=== PATIENT | female | born 1995 | race Caucasian/White ===

== ENCOUNTER 2018-03-10 23:21 | Emergency (ER) | payer OTHER, MEDICAID ==
[~2018-03-10] VITALS: Ht 165.1 cm; Wt 97.5 kg
[~2018-03-10 23:21] MED LIST: ROBAXIN 750 MG750 M1 PO; TRAMADOL 50 MG50 MG PO
[2018-03-10] MEDS ORDERED: ZOLOFT25 MG PO (23:37)
[2018-03-11 00:11] LABS: URINE BILIRUBIN NEGATIVE (Negative); URINE BLOOD NEGATIVE (Negative); URINE CLARITY CLEAR; URINE COLOR YELLOW; URINE GLUCOSE-RANDOM NEGATIVE (Negative); URINE KETONES NEGATIVE (Negative); URINE LEUKOCYTES-REFLEX NEGATIVE (Negative); URINE NITRITE-REFLEX NEGATIVE (Negative); URINE PROTEIN NEGATIVE (Negative); URINE SPECIFIC GRAVITY 1.025 (1.005-1.030); URINE UROBILINOGEN 0.2 E.U./dl (0.2-1.0)
[2018-03-11 00:28] LABS: ABSOLUTE BASOPHILS 0.1 thou/uL (0.0-0.2); ABSOLUTE EOSINOPHILS 0.1 thou/uL (0.0-0.7); ABSOLUTE LYMPHOCYTES 3.4 thou/uL (0.8-5.3); ABSOLUTE MONOCYTES 0.6 thou/uL (0.0-1.2); ABSOLUTE NEUTROPHILS 6.2 thou/uL (1.6-8.1); BASOPHILS 0.5 %; HEMATOCRIT 42.8 % (37.0-47.0); HEMOGLOBIN 14.3 gm/dL (12.0-15.0); MCH 28.1 pg (26.0-34.0); MCHC 33.3 g/dL (28.0-37.0); MCV 84.3 fL (80.0-100.0); NUCLEATED RBCS 0 /100WBC; PLATELET COUNT* 249 thou/uL (150-400); POLYS 59.5 %; RBC 5.08 mil/uL (4.20-5.00); RDW-CV 14.1 % (10.5-14.5); WBC 10.4 thou/uL (4.0-11.0)
[2018-03-11 00:55] LABS: ANION GAP 14 mmol/L (7-16); BUN 10 mg/dL (7-18); CHLORIDE 103 mmol/L (98-107); CO2 22 mmol/L (21-32); CREATININE 0.7 mg/dL (0.6-1.3); GLUCOSE 95 mg/dL (70-99); SODIUM 139 mmol/L (136-145)
[2018-03-11 01:00] LABS: ALBUMIN 3.5 g/dL (3.4-5.0); ALKALINE PHOSPHATASE 88 U/L (46-116); SGPT 36 U/L (30-65); TOTAL BILIRUBIN 0.1 mg/dL (<0.1-1.0); TOTAL PROTEIN 7.2 g/dL (6.4-8.2)
[2018-03-11 01:02] LABS: SGOT < 5 U/L (15-37)
[2018-03-11] MEDS ORDERED: NORCO 5-325 TA1 EACH PO (03:44)
[2018-03-11] MEDS ORDERED: FLAGYL 250 MG250 MG PO (03:44)
[2018-03-11] MEDS ORDERED: CIPROFLOXACIN500 M1 PO (03:44)
[2018-03-11] MEDS ORDERED: PREDNISONE50 MG PO (04:42)
[2018-03-11 05:04] VITALS: BP 127/80
== END 2018-03-11 05:05 | disposition home or self-care (01) ==
LOC: M.ERS 23:21
PROVIDERS: Personal Emergency Response Attendant
DX: K52.9 Noninfective gastroenteritis and colitis, unspecified (principal); F17.210 Nicotine dependence, cigarettes, uncomplicated

== ENCOUNTER 2018-11-14 10:03 | Emergency (ER) | payer OTHER ==
[~2018-11-14] VITALS: Ht 152.4 cm; Wt 96.6 kg
[~2018-11-14 10:03] MED LIST changes: +CIPROFLOXACIN500 M1 PO; +FLAGYL 250 MG250 MG PO; +NORCO 5-325 TA1 EACH PO; +PREDNISONE50 MG PO; +ZOLOFT25 MG PO
[2018-11-14 11:18] LABS: URINE BILIRUBIN NEGATIVE (Negative); URINE BLOOD NEGATIVE (Negative); URINE CLARITY CLOUDY; URINE COLOR YELLOW; URINE GLUCOSE-RANDOM NEGATIVE (Negative); URINE KETONES NEGATIVE (Negative); URINE LEUKOCYTES-REFLEX TRACE (Negative); URINE NITRITE-REFLEX NEGATIVE (Negative); URINE PROTEIN NEGATIVE (Negative); URINE UROBILINOGEN 0.2 E.U./dl (0.2-1.0)
[2018-11-14 11:27] LABS: SQUAMOUS >10 Many /LPF (0-3)
[2018-11-14 11:28] LABS: URINE RBC None Seen /HPF (0-2); URINE WBC-REFLEX 6-15 Few /HPF (0-5)
[2018-11-14 11:29] LABS: AMORPHOUS PHOSPHATES Many /LPF (None Seen); BACTERIA-REFLEX 1-9 Few /HPF (None Seen); CASTS None Seen /LPF (None Seen); MUCUS 4-6 Moderate strn/LPF (None Seen)
[2018-11-14] MEDS ORDERED: BACTRIM DS TAB1 EACH PO ×2 (11:37→12:00)
[2018-11-14] MEDS ORDERED: ROBAXIN 750 MG750 MG PO ×2 (11:41→12:00)
[2018-11-14] MEDS ORDERED: NAPROSYN500 M1 PO ×2 (11:56→12:00)
[2018-11-14 12:12] VITALS: BP 130/70
== END 2018-11-14 12:12 | disposition home or self-care (01) ==
LOC: M.ERS 10:03
PROVIDERS: Nurse Practitioner Family
DX: N39.0 Urinary tract infection, site not specified (principal); F17.210 Nicotine dependence, cigarettes, uncomplicated

== ENCOUNTER 2018-11-19 11:35 | Emergency (ER) | payer OTHER ==
[~2018-11-19] VITALS: Ht 165.1 cm; Wt 97.5 kg
[~2018-11-19 11:35] MED LIST changes: +BACTRIM DS TAB1 EACH PO; +NAPROSYN500 M1 PO; +ROBAXIN 750 MG750 MG PO
[2018-11-19 11:57] LABS: URINE BILIRUBIN NEGATIVE (Negative); URINE BLOOD NEGATIVE (Negative); URINE CLARITY CLEAR; URINE COLOR YELLOW; URINE GLUCOSE-RANDOM NEGATIVE (Negative); URINE KETONES NEGATIVE (Negative); URINE LEUKOCYTES-REFLEX 1+ (Negative); URINE NITRITE-REFLEX NEGATIVE (Negative); URINE PROTEIN NEGATIVE (Negative); URINE SPECIFIC GRAVITY >= 1.030 (1.005-1.030); URINE UROBILINOGEN 0.2 E.U./dl (0.2-1.0)
[2018-11-19 12:03] LABS: BACTERIA-REFLEX 1-9 Few /HPF (None Seen); CASTS None Seen /LPF (None Seen); CRYSTALS None Seen /LPF (None Seen); MUCUS 4-6 Moderate strn/LPF (None Seen); SQUAMOUS 4-10 Moderate /LPF (0-3); URINE RBC 0-2 Rare /HPF (0-2); URINE WBC-REFLEX 6-15 Few /HPF (0-5)
[2018-11-19] MEDS ORDERED: MACROBID 100 M100 M1 PO (12:57)
[2018-11-19] MEDS ORDERED: ACETAMINOPHEN-1 EAC1 PO (12:58)
[2018-11-19 13:14] VITALS: BP 122/68
== END 2018-11-19 13:14 | disposition home or self-care (01) ==
LOC: M.ERS 11:35
PROVIDERS: Physician Assistant
DX: N39.0 Urinary tract infection, site not specified (principal); F17.210 Nicotine dependence, cigarettes, uncomplicated

== ENCOUNTER 2019-03-01 14:46 | Emergency (ER) | payer OTHER ==
[~2019-03-01] VITALS: Ht 165.1 cm; Wt 90.7 kg
[~2019-03-01 14:46] MED LIST changes: +ACETAMINOPHEN-1 EAC1 PO; +MACROBID 100 M100 M1 PO
[2019-03-01] MEDS ORDERED: NEXPLANON68 MG (14:55)
[2019-03-01 15:18] LABS: INFLUENZA A ANTIGEN Negative (Negative); INFLUENZA B ANTIGEN Negative (Negative)
[2019-03-01] MEDS ORDERED: TESSALON PERLE100 MG PO (16:03)
[2019-03-01] MEDS ORDERED: PROAIR HFA8.5 GM INH (16:04)
[2019-03-01 16:45] VITALS: BP 125/85
== END 2019-03-01 16:46 | disposition home or self-care (01) ==
LOC: M.ERS 14:46
PROVIDERS: Nurse Practitioner Family
DX: J06.9 Acute upper respiratory infection, unspecified (principal); R42 Dizziness and giddiness; F17.210 Nicotine dependence, cigarettes, uncomplicated

== ENCOUNTER 2019-04-30 00:51 | Emergency (ER) | payer OTHER ==
[~2019-04-30] VITALS: Ht 165.1 cm; Wt 102.5 kg
[~2019-04-30 00:51] MED LIST changes: +NEXPLANON68 MG; +PROAIR HFA8.5 GM INH; +TESSALON PERLE100 MG PO
[2019-04-30] MEDS ORDERED: ZOLOFT50 M1 PO (01:37)
[2019-04-30] MEDS ORDERED: HYDROXYZINE HCL25 M2 PO (01:40)
[2019-04-30 02:29] LABS: ABSOLUTE BASOPHILS 0.1 thou/uL (0.0-0.2); ABSOLUTE EOSINOPHILS 0.1 thou/uL (0.0-0.7); ABSOLUTE LYMPHOCYTES 4.6 thou/uL (0.8-5.3); ABSOLUTE MONOCYTES 0.6 thou/uL (0.0-1.2); ABSOLUTE NEUTROPHILS 3.9 thou/uL (1.6-8.1); EOSINOPHILS 1.5 %; HEMATOCRIT 43.2 % (37.0-47.0); HEMOGLOBIN 14.9 gm/dL (12.0-15.0); MCH 30.3 pg (26.0-34.0); MCHC 34.4 g/dL (28.0-37.0); MCV 88.2 fL (80.0-100.0); MONOCYTES 6.5 %; MPV 9.7 fl. (7.2-11.1); NUCLEATED RBCS 0 /100WBC; PLATELET COUNT* 243 thou/uL (150-400); RDW-CV 13.3 % (10.5-14.5); WBC 9.3 thou/uL (4.0-11.0)
[2019-04-30 02:34] LABS: CALCIUM 8.6 mg/dL (8.5-10.1); CREATININE 0.7 mg/dL (0.6-1.3); POTASSIUM 3.4 mmol/L (3.5-5.1)
[2019-04-30 02:43] LABS: ALBUMIN 3.7 g/dL (3.4-5.0); TOTAL BILIRUBIN 0.2 mg/dL (<0.1-1.0)
[2019-04-30] MEDS ORDERED: CIPROFLOXACIN500 M1 PO (04:13)
[2019-04-30] MEDS ORDERED: PREDNISONE50 MG PO (04:13)
[2019-04-30] MEDS ORDERED: FLAGYL500 M1 PO (04:13)
[2019-04-30 04:29] VITALS: BP 110/70
== END 2019-04-30 04:30 | disposition home or self-care (01) ==
LOC: M.ERS 00:51
PROVIDERS: Emergency Medicine
DX: K52.9 Noninfective gastroenteritis and colitis, unspecified (principal); F17.210 Nicotine dependence, cigarettes, uncomplicated

== ENCOUNTER 2019-10-01 13:01 | Emergency (ER) | payer OTHER ==
[~2019-10-01] VITALS: Ht 162.6 cm; Wt 95.3 kg
[~2019-10-01 13:01] MED LIST changes: +FLAGYL500 M1 PO; +HYDROXYZINE HCL25 M2 PO; +ZOLOFT50 M1 PO
[2019-10-01] MEDS ORDERED: TYLENOL WITH CO1 TA1 PO (15:07)
[2019-10-01] MEDS ORDERED: LIDODERM1 EACH TRANSDERM (15:08)
[2019-10-01 15:33] VITALS: BP 111/88
== END 2019-10-01 15:35 | disposition home or self-care (01) ==
LOC: M.ERS 13:01
DX: M54.5 Low back pain (principal); M54.6 Pain in thoracic spine; F17.210 Nicotine dependence, cigarettes, uncomplicated